=== PATIENT | male | born 1985 | race Caucasian/White ===

== ENCOUNTER 2024-09-06 13:16 | Emergency (ER) | payer OTHER, SELFPAY ==
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
[2024-09-06 13:44] VITALS: BP 130/64; PULSE 73; RESP 18; TEMP 36.6; O2SAT 100
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
--- OUTSIDE RECORDS SUMMARY | 2024-09-06 13:53 | XMS_ITS | Clinical Summary ---
Author Organization [facility] Address [address] [place] [address] Care Team Providers Care Windows Security Analyst Name Role Phone Didier Sandhu MD Primary Care Provider [phone] Source Comments [facility],non-owned Affiliates and Associated Physician Practices is amultiple site organization consisting of ambulatory clinics and hospital sitesin [place], [place], [place] and [place]. This disclosure is being madepursuant to the Care Everywhere program and may not contain all information available regarding this patient. Last updated 18.[facility] Allergies No known active allergies Medications * Be aware that medications may not be up to date on this document. Alwaysverify current medications with the patient. 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 Gender Identity Not on file Sexual Orientation Not on file Last Filed Vital Signs Vital Sign Reading Time Taken Comments Blood Pressure 124/72 06/20/2017 9:24 AM APPRAISER Pulse 88 06/20/2017 9:24 AM APPRAISER Temperature 37.1 C (98.8 F) 06/20/2017 9:24 AM APPRAISER Respiratory Rate 16 06/20/2017 9:24 AM APPRAISER Oxygen Saturation 98% 06/20/2017 9:24 AM APPRAISER Inhaled Oxygen Concentration - - Weight 99.8 kg (220 lb) 06/20/2017 9:24 AM APPRAISER Height 177.8 cm (5' 10 ) 06/20/2017 9:24 AM APPRAISER Body Mass Index 31.57 06/20/2017 9:24 AM APPRAISER Plan of Treatment Health Maintenance Due Date Last Done Comments HIV SCREENING 2000 HEPATITIS C SCREENING 04/19/2003 DTAP/TDAP/TD VACCINES (1 - Tdap) 2004 HEPATITIS B VACCINE (1 of 3 - 19+ 3-dose series) 2004 COVID-19 VACCINE (1 - 2023-2 5 season) 2024 DEPRESSION SCREENING 05/05/2024 INFLUENZA VACCINE (Season Ended) 2025 ZOSTER VACCINE (1 of 2) 2035 HIB VACCINE Aged Out No longer eligi ble based on patient's age to complete this topic HPV VACCINE Aged Out No longer eligi ble based on patient's age to complete this topic MENINGOCOCCAL (Group B) VACC INE SHARED DECISION-MAKING Aged Out No longer eligibl e based on patient's age to complete this topic MENINGOCOCCAL GROUPS A/C/Y/W VACCINE Aged Out No longer eligible b ased on patient's age to complete this topic PNEUMOCOCCAL VACCINE Aged Out No long er eligible based on patient's age to complete this topic Insurance [employer] Care Teams Windows Security Analyst Relationship Specialty Start Date End Date Didier Sandhu MD [address] [place] [address] PCP - General Family Medicine 04/19/16
--- OUTSIDE RECORDS SUMMARY | 2024-09-06 13:53 | XMS_ITS | Referral Summary ---
Author Organization [facility] Address [address] [place] [address] Care Team Providers Care Student Education Specialist Name Role Phone Tena Hogan Primary Care Pr ovider Allergies No known active allergies Medications multivitamin (MULTI-DAY) tabletIndicatio ns:Vitamin Deficiency Prevention Take 1 tablet by mouth Active omega-3 fatty acids-fish oil (FISH OIL) 340-1,000 mg capsule Active diclofenac DR (VOLTAREN) 50 mg EC tablet Take one twice daily as needed for severe headache. No more than two days per week 30 tablet 3 08/30/2019 Active tamsulosin (FLOMAX) 0.4 mg extended release capsule Take 1 capsule (0.4 mg total) by mouth daily for 10 days 10 capsule 07/17/2023 Active Active Problems Problem Noted Date Diagnosed Date Abnormal MRI of head 09/17/2018 Migraine with aura and with status migrainosus, not intractable 09/17/2018 Social History Tobacco Use Types Packs/Day Years Used Date Smoking Tobacco: Never Smokeless Tobacco: Never Personal Safety Answer Date Recorded Have you ever been in or are you currently in a harmful physical or emotional relationship or is someone making you feel afraid or unsafe? 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 Gender Identity Male 07/17/2023 1:02 PM CDT Sexual Orientation Straight 03/18/2019 7: 44 PM LINE ASSEMBLY UTILITY WORKER Last Filed Vital Signs Vital Sign Reading Time Taken Comments Blood Pressure 149/89 07/17/2023 5:25 PM CDT Pulse 87 07/17/2023 5:25 PM CDT Temperature 36.3 C (97.4 F) 07/17/2023 12:48 PM CDT Respiratory Rate 20 07/17/2023 5:25 PM CDT Oxygen Saturation 99% 07/17/2023 5:25 PM CDT Inhaled Oxygen Concentration - - Weight 104.5 kg (230 lb 6.1 oz) 024 12:48 PM CDT Height 175.3 cm (5' 9 ) 07/17/2023 12:4 8 PM CDT Body Mass Index 34.02 07/17/2023 12:48 PM CDT Plan of Treatment Not on file Insurance [employer] [place] [employer] [place] Care Teams Student Education Specialist Relationship Specialty Start Date End Date Tena Hogan PA PCP - General Physician Staff Auditor 06/30/18
--- OUTSIDE RECORDS SUMMARY | 2024-09-06 13:53 | XMS_ITS | Clinical Summary ---
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 Gender Identity Male 07/17/2023 1:02 PM CDT Sexual Orientation Straight 03/18/2019 7: 44 PM MENTAL HEALTH THERAPIST Obstetrics History Last Filed Vital Signs Vital Sign Reading [...] 07/17/2023 12:48 PM CDT Plan of Treatment Health Maintenance Due Date Last Done Comments Depression Screening 1985 Hepatitis C Screening 1985 DTaP/Tdap/Td Vaccine (1 - Tdap) 1996 Varicella Vaccines (1 of 2 - 13+ 2-dose series) 1998 Hepatitis B Screening 2003 Regular Well Visit/Exam 18-64 2003 Influenza Vaccine (Season Ended) 2025 02/03/2020, 02/04/2019 HPV Vaccines Aged Out No longer eligi ble based on patient's age to complete this topic Pneumococcal vaccine <65 Aged Out No longer eligible based on patient's age to complete this topic Insurance [facility] Care Teams Modeler Relationship Specialty Start Date End Date Tena Hogan PA PCP - General Physician Radiochemical Technician 06/30/18
--- OUTSIDE RECORDS SUMMARY | 2024-09-06 13:53 | XMS_ITS | Data Portability ---
[facility] Address [address] [place] [address] Care Team Providers Care Therapeutic Recreation Specialist Name Role Phone MICHELLE FRANKS Primary Care Provider Unavailab le Assessment No assessment recorded. Plan of Treatment Reminders Order Date Submit Date Provider Last Modified By Organization Details Last Modified Time Details Appointments None recorded. Lab testosteron e, total, serum 2024 025 [email or web address], [address], [place], [address], 5 15:13:26 PSA, serum or plasma 2024 025 [facility], [address], [place], [address], 5 15:13:26 CBC w/ auto diff 2024 025 [facility], [address], [place], [address], 5 15:13:27 CMP, serum or plasma 2024 025 [facility], [address], [place], [address], 5 15:13:27 lipid panel, serum 2024 025 JACQUE [facility], [address], [place], [address], 5 10:09:38 testosteron e, total, serum 2023 024 [facility], [facility] [address], [address], [place], [address], 4 10:34:17 TSH, serum or plasma 2023 024 [facility], [facility] [address], [address], [place], [address], 4 10:34:17 CBC w/ auto diff 2023 024 [facility], [address], [address], [place], [address], 4 10:34:17 CMP, serum or plasma 2023 [facility], [facility], [address], [place], [address], 4 10:34:17 lipid panel, serum 2023 024 [facility], [address], [address], [place], [address], 4 10:34:17 HbA1c (hemoglobin A1c), blood 2023 [facility], [facility] [address], [address], [place], [address], 4 10:34:17 insulin, serum 2023 024 [facility], [facility] [address], [address], [place], [address], 4 10:34:18 Referral None recorded. Procedures None recorded. Surgeries None recorded. Imaging electrocard iogram 2024 025 [email or web address] 0 In-Office Order, Internal Use Only DO Not Attach Compendium DO Not Attach Compendium, Do Not Delete/merge, [id number] 14:57:50 Medication Orders None recorded. Patient TargetsNo targets recorded. Patient Instructions Encounter Date Encounter Id Patient Instructions Last Modified By Organization Details Last Modified Time 02/16/2024 [id number] A healthy lifestyle: care instructions Not available 02/16/2024 17:50:08 07/27/2024 [id number] A healthy lifestyle: care instructions Not available 07/27/2024 14:40:32 Reason for Referral None Reported. Results Created Date Observation Date Name Description Value Unit Range Abnormal Flag Note LastModifiedBy Organization Detail LastModifiedTime 07/28/1907/27/2024 elect larrylori ammon am No observ ation record ed. JACQUE In-Office Order Internal Use Only DO Not Attach Compendium DO Not Attach Compendium, Do Not Delete/merge, [id number] 07/28/2024 13:26:17 Result Notes None recorded. Problems Name Problem SNOMED Code Status Onset Date Resolution Date Notes Provider Name and Address Organization Details Recorded Time Hyperlipide valery 63569778 Active 2023 Michelle Ely null, [place] - [facility] 4 11:02:06 Insomnia 564881574 Active 2023 Michelle E[place], [place] [facility] 4 11:02:13 Body mass index 25-29 - overweight 219337752 Active 2024 Elinor Leal [place] null, [place] - [facility] 5 13:57:53 Long-term current use of testosteron e replacement therapy 5825269843991 1 Active 2024 JOAQUÍN Estevez Attn: Lili g,[address] [facility], [place], [address], [place] - [facility] 5 16:24:21 Family history of malignant neoplasm of prostate 185253238 Active 2024 JOAQUÍN Estevez Attn: Lili g,[address] [facility], [place], [address], [place] - [facility] 5 16:24:23 Family history of premature coronary heart disease 437102115 Active 2024 JOAQUÍN Estevez Attn: Lili gallego,[address], [place], [address], [facility] - [facility] 5 16:24:26 Overweight 053898143 Active 2024 JOAQUÍN Estevez Attn: Lili g,[address], [place], [address], [place] - [facility] 5 16:25:05 Long-term drug therapy Active 2024 JOAQUÍN Estevez Attn: Lili g,[address], [place], [address], [facility] - [facility] 5 16:25:17 Problem Notes None recorded. Procedures Surgical History Date Name Laterality Status Provider Name and Address Organization Details Recorded Time Vasectomy completed Elinor Leal MA [facility] 02/16/2024 17:16:01 Imaging Results Imaging Date Name Status LastModified by Organization Details LastModified Time 07/27/2024 electrocardiogram completed JACQUE In-Offi ce Order Internal Use Only DO Not Attach Compendium DO Not Attach Compendium, Do Not Delete/merge, [id number] 07/28/2024 13:26:17 Procedure Notes None recorded. Medical Equipment None Reported. Allergies No known drug allergies Medications Name Sig Start Date Stop Date Status Note LastModified by Organization Details LastModified Time tamsulosi n 0.4 mg capsule TAKE 1 CAPSULE BY MOUTH DAILY FOR 10 DAYS 02/15 completed Not Available Not Available Not Available rosuvasta tin 5 mg tablet TAKE 1 TABLET BY MOUTH EVERY DAY AT BEDTIME 02/15 completed pt. stopped taking this Not Available Not Available Not Available Vitals Date Recorded Body weight Body mass index (BMI) Body height Respiratory rate Oxygen saturation Oxygen saturation in Arterial blood by Pulse oximetry Heart rate Systolic blood pressure Diastolic blood pressure Provider Name and Address Organization Details Last Updated DateTime 4 04178.1 6 g 30.9 kg/m2 175.26 cm 18 /min 99 % 99 % 60 /min 128 mm[Hg] 78 mm[Hg] Elinor Leal MA [facility] 17:18:31 Date Recorded Systolic blood pressure Diastolic blood pressure Provider Name and Address Organization Details Last Updated DateTime 02/16/2024 120 mm[Hg] 80 mm[Hg] JOAQUÍN Estevez Attn: Accounting, [place], [address], [facility] 02/16/2024 17:50:45 Date Recorded Body height Body mass index (BMI) Body weight Oxygen saturation Oxygen saturation in Arterial blood by Pulse oximetry Heart rate Systolic blood pressure Diastolic blood pressure Provider Name and Address Organization Details Last Updated DateTime 175.26 cm 29.2 kg/m2 05868.2 9 g 97 % 97 % 81 /min 126 mm[Hg] 82 mm[Hg] Elinor Leal MA [facility] 13:59:38 Date Recorded Respiratory rate Systolic blood pressure Diastolic blood pressure Provider Name and Address Organization Details Last Updated DateTime 07/27/2024 16 /min 130 mm[Hg] 80 mm[Hg] JOAQUÍN Estevez Attn: Accounting, [address] [place], [address], [facility] 07/27/2024 14:42:12 Social History Question Answer Notes LastModified by Organizat ion Details LastModified Time Tobacco Smoking Status Never Smoker Michelle Ely gerry, [facility] 07/07/2023 11:03:17 Do You Have An Advance Directive? No [email or web address] Information not available 07/07/2023 What Is Your Level Of Alcohol Consumption? Occasional [email or web address] Information not available 07/07/2023 Are You Blind Or Do You Have Difficulty Seeing? Yes Glasses Information not available 07/07/2023 What Is Your Level Of Caffeine Consumption? Moderate [email or web address] Information not available 07/07/2023 In The 14 Days Before Symptom Onset, Have You Had Close Contact With A Laboratory-confir med COVID-19 While That Case Was Ill? No [email or web address] Information not available 07/07/2023 In The 14 Days Before Symptom Onset, Have You Had Close Contact With A Person Who Is Under Investigation For COVID-19 While That Person Was Ill? No [email or web address] Information not available 07/07/2023 Have You Been To An Area Known To Be High Risk For COVID-19? No [email or web address] Information not available 07/07/2023 Are You Currently Employed? Yes [email or web address] Information not available 07/07/2023 Are You Deaf Or Do You Have Serious Difficulty Hearing? No [email or web address] Information not available 07/07/2023 What Type Of Diet Are You Following? REGULAR [email or web address] Information not available 07/07/2023 Are There Any Guns Present In Your Home? No Information not available 02/16/2024 What Was The Date Of Your Most Recent Tobacco Screening? 07/27/2024 Information not available 07/27/2024 What Is Your Relationship Status? [email or web address] Information not available 07/07/2023 Do You Use Your Seat Belt Or Car Seat Routinely? Yes [email or web address] Information not available 07/07/2023 Do You Have Smoke And Carbon Monoxide Detectors In Your Home? Yes [email or web address] Information not available 07/07/2023 Do You Use Any Illicit Or Recreational Drugs? No [email or web address] Information not available 07/07/2023 Do You Use Sunscreen Routinely? Yes [email or web address] Information not available 07/07/2023 Has Tobacco Cessation Counseling Been Provided? No Information not available 02/16/2024 Do You Or Have You Ever Used Any Other Forms Of Tobacco Or Nicotine? No [email or web address] Information not available 07/07/2023 Sex: Male Functional Status Question Answer Note LastModified by Organization D etails LastModified Time Are you able to care for yourself? Yes [email or web address] Information n ot available 07/07/2023 What is your exercise level? None Information not available 07/07/2023 Mental Status None recorded. Family History Relationship Description Onset Age of this Age Resolved Age Notes LastModified by Organization Details LastModified Time Mother Hypertensive disorder [email or web address] Not available 07/06 11:02:46 Mother Hypercholest erolemia [email or web address] Not available 2023 17:20:59 Father Heart disease [email or web address] Not available 2023 17:20:46 Father Hypertensive disorder [email or web address] Not available 2023 17:20:53 Father Migraine [email or web address] Not availabl e 02/16/2024 17:21:13 Medical History Condition Response Coronary Artery Disease N Other N High Blood Pressure N Atrial Fibrillation N Kidney or Bladder Problems N Thyroid Problems N GI Problems N Depression N COPD N Blood Clots N Have you had a mammogram in the last yea r? N Skin Problems N Anemia N Heart Attack (MT) N Anxiety Disorder N Diabetes N Muscle, Joint, or Bone Problems N Seizures/Epilepsy N Have you had a colonoscopy in the last 1 0 years? N Acid Reflux (GERD) N Cancer N Stroke N Asthma N Allergies N Have you had a PSA blood test in the las t year? N High Cholesterol N Hepatitis N Liver Disease N Headaches Y Heart Failure N Osteoporosis N Immunizations Vaccine Type Date Status Note Provider Todd mauro and Address Organization Details Recorded Time Influenza, MDCK, quadrivalent, PF 02/03/2020 completed WILLIAN Navarrete [facility] 02/16/2024 17:16:51 Influenza, split virus, quadrivalent, PF 02/04/2019 completed WILLIAN Navarrete [facility] 02/16/2024 17:16:51 Past Encounters Encounter ID Performer Location Encounter Start Date Encounter Closed Date Diagnosis/Indication Diagnosis SNOMED-CT Code Diagnosis ICD10 Code Diagnosis Note [id number] Mohamud Fraser MD [facility] [place] [address] [place] [address] 02/16/2024 16:58:04 02/16/2024 17:58:48 Body mass index 30+ - obesity 186064119 Z68.30 BMI is 30.9 Obesity 248586136 E66.9 Patient follows a higher protein intermitte nt fasting diet Adult heal th examination 412481123 Z00.00 Annual wellness exam completed Hyperlipidemia 86426879 E78.5 Diet and exercise modificati ons for lipid management . He is due for updated fasted lipid panel Insomnia 573579774 G47.0 0 History of use of insomnia. Patient is currently stable no request for prescripti ve medication Diabetes m ellitus screening 566228643 Z13.1 Annual A1c diabetes screening is due Long-term drug therapy 516821860 Z79.891 Routine CBC and CMP ordered Thyroid di sorder screening 440427310 Z13.29 Routine thyroid labs ordered Endocrine/ metabolic screening 713173756 Z13.228 Patient would like to have testostero ne screening completed [id number] Mohamud Fraser MD [facility] - Yogesh Juárez [address] [place] [address] 07/27/2024 13:48:51 07/27/2024 14:57:50 Body mass index 25-29 - overweight 908544089 Z68.29 BMI is 29.2 Overweight 329722145 E66 .3 Family his tory of malignant neoplasm of prostate 287696960 Z80.42 Mat gf has prostate cancer. Family his tory of premature coronary heart disease 643858518 Z82.49 Pat gf decreased at age 42 shoveling snow. pt's father did have heart attack and now had pacer/defi b; Paternal aunt of something cardiac in her sleep. Hyperlipidemia 75024478 E78.5 Patient is due for an updated fasting lipid panel to see where the levels are at currently. He is no longer following the carnivore diet. He is aware that if elevation persists medication is still recommende d. Long-term current use of testosterone replacement therapy 5304916107 9101 Z79.890 pt doses this on his own, ordered online from a friend...h e would prefer this provider orders labs Tight chest 68790744 R07 .89 EKG is entirely normal in the office. He is not interested in additional diagnostic workup via stress testing. We have discussed that that would be the next recommenda tion if he remains symptomati c. He reports that this directly correlated after increasing his testostero ne dosing and never occurred again, after 2-3 days after the shot. Long-term drug therapy 959301760 Z79.891 Routine CBC and CMP ordered Health Concerns Section Related Observation LastModified by Organization Detai ls LastModified Time None Recorded Concern Status LastModified by Organization Details LastModified Time None Recorded Advance Directives Directive N: Payers Encounter Date Sequence Insurance Name Policy Number Policy Marino Covered Member ID Marino Member ID Guarantor Name 02/16/2024 1 [place] [id number] Adrián Lorenzana [id number] Adrián Lorenzana 07/27/2024 1 [facility] [id number] Adrián Lorenzana [id number] Adrián Salomón Notes Date Note Type Note Provider Name and Address Organization Details Recorded Time 4 text/html HyperlipidemiaReported bypatient.Notes:Patient has a history of hyperlipidemia he is not currently on any medication. He has been trying to manage with diet and exercise modifications in which he has been adherent to.InsomniaReported bypatient.Notes:Insomnia continues to be a chronic complaint but is currently stable at this time JOAQUÍN Estevez Attn: Accounting,[address] [facility], [place], [address], [facility] 03/06/2024 17:27:17 5 text/html HyperlipidemiaReported bypatient.Notes:Patient has a history of hyperlipidemia he is not currently on any medication. He has been trying to manage with diet and exercise modifications in which he has been adherent to.InsomniaReported bypatient.Notes:Insomnia continues to be a chronic complaint but is currently stable at this time Patient reports he just has a less desire and determination and motivation to do things in the last months. He is interested in having testosterone checked again, he has been taking testosterone that a friend is ordering and giving to him. He would like to have labs formally monitored by this office. Upon further discussion on history of present illness patient reports he is having some tightness in his chest that is not necessarily with activity but can be at rest or other times of the day. It is fairly mild and not self-limiting lasting sometimes just sec to a few minutes but he is concerned due to family history of premature heart disease. He does state that it happened right after the dosing of his testosterone was increased. JOAQUÍN Estevez Attn: Accounting,[address] [facility], [place], [address], [facility] 08/08/2024 16:25:52
--- OUTSIDE RECORDS SUMMARY | 2024-09-06 13:53 | XMS_ITS | Data Portability ---
Author Organization [facility], Main Office Address [address] [place] [address] Assessment No assessment recorded. Plan of Treatment Reminders Order Date Submit Date Provider Last Modified By Organization Details Last Modified Time Details Appointments None record ed. Lab None record ed. Referral None record ed. Procedures None record ed. Surgeries None record ed. Imaging None record ed. Medication Orders None record ed. Patient TargetsNo targets recorded. Patient InstructionsNo instructions recorded. Reason for Referral None Reported. Results Created Date Observation Date Name Description Value Unit Range Abnormal Flag Note LastModifiedBy Organization Detail LastModifiedTime 05/19/19 22 05/21/2021 PSA, TOTAL PSA, total 0.37 NG/mL < or = 4.00 normal The total PSA value from this assay syste m is stand ardiz ed again st the WHO stand sohail. The test resul t will be appro ximat moody 20% lower when gurpreet red to the equim olar- stand ardiz ed total PSA (Kessler man Coult er). Gurpreet rison of seria l PSA resul ts shoul d be inter prete d with this fact in mind. This test was perfo rmed using the Sieme ns chemi lumin escen t metho d. Value s obtai kassidy from diffe rent assay metho ds canno t be used inter dukes eably . PSA level s, regar dless of value , shoul d not be inter prete d as absol assin[place] and sioux evide nce of the prese nce or absen ce of disea se. Not Available [employer] [facility] [address] [address], [place], [address], 05/21/2021 13:08:27 05/19/19 22 05/21/2021 TESTO STERO NE, TOTAL , MALES (ADUL T), IA testosterone , total, males (adult), ia 521 NG/dL 250-82 7 normal Not Available [address], [address], 05/21/2021 13:08:26 05/19/19 22 05/21/2021 VITAM IN B12/F OLATE , SERUM PANEL vitamin B12 626 pg/mL 200-11 00 normal Not Available [address], [address], 05/21/2021 13:08:25 05/19/19 22 05/21/2021 VITAM IN B12/F OLATE , SERUM PANEL folate, serum 23.3 NG/mL normal Refer ence Range Low: <3.4 Borde rline : 3.4-5 .4 Marybeth l: >5.4 Not Available [address], [address], 05/21/2021 13:08:25 05/19/19 22 05/21/2021 URINA LYSIS , COMPL ETE color yellow yellow normal Not Available [address], [address], 05/21/2021 13:08:25 05/19/19 22 05/21/2021 URINA LYSIS , COMPL ETE appearance clear clear normal Not Available [address], [address], 05/21/2021 13:08:25 05/19/19 22 05/21/2021 URINA LYSIS , COMPL ETE specific gravity 1.019 1.001- 1.035 normal Not Available [address], [address], 05/21/2021 13:08:25 05/19/19 22 05/21/2021 URINA LYSIS , COMPL ETE pH 7.0 5.0-8. 0 normal Not Available [address], [address], 05/21/2021 13:08:25 05/19/19 22 05/21/2021 URINA LYSIS , COMPL ETE glucose negati ve negati ve normal Not Available [facility] [address], [address], 05/21/2021 13:08:25 05/19/19 22 05/21/2021 URINA LYSIS , COMPL ETE bilirubin negati ve negati ve normal Not Available [facility] [address] [place], [address], 05/21/2021 13:08:25 05/19/19 22 05/21/2021 URINA LYSIS , COMPL ETE ketones trace negati ve abnormal Not Available [facility] [address], [address], 05/21/2021 13:08:25 05/19/19 22 05/21/2021 URINA LYSIS , COMPL ETE occult blood negati ve negati ve normal Not Available [facility] [address] [address] [place], [address], 05/21/2021 13:08:25 05/19/19 22 05/21/2021 URINA LYSIS , COMPL ETE protein negati ve negati ve normal Not Available [facility] [address], [address], 05/21/2021 13:08:25 05/19/19 22 05/21/2021 URINA LYSIS , COMPL ETE nitrite negati ve negati ve normal Not Available [facility] [address], [address], 05/21/2021 13:08:25 05/19/19 22 05/21/2021 URINA LYSIS , COMPL ETE leukocyte esterase trace negati ve abnormal Not Available [facility] [address] [place], [address], 05/21/2021 13:08:25 05/19/19 22 05/21/2021 URINA LYSIS , COMPL ETE WBC none seen /hpf < or = 5 normal Not Available [address], [address], 05/21/2021 13:08:25 05/19/19 22 05/21/2021 URINA LYSIS , COMPL ETE RBC none seen /hpf < or = 2 normal Not Available [address], [address], 05/21/2021 13:08:25 05/19/19 22 05/21/2021 URINA LYSIS , COMPL ETE squamous epithelial cells none seen /hpf < or = 5 normal Not Available [address], [address], 05/21/2021 13:08:25 05/19/19 22 05/21/2021 URINA LYSIS , COMPL ETE bacteria none seen /hpf none seen normal Not Available [address], [address], 05/21/2021 13:08:25 05/19/19 22 05/21/2021 URINA LYSIS , COMPL ETE hyaline cast none seen /lpf none seen normal Not Available [address], [address], 05/21/2021 13:08:25 05/19/19 22 05/21/2021 CBC (INCL UDES DIFF/ PLT) white blood cell count 4.1 thous and/u L 3.8-10 .8 normal Not Available [address], [address], 05/21/2021 13:08:24 05/19/19 22 05/21/2021 CBC (INCL UDES DIFF/ PLT) red blood cell count 5.47 scot on/uL 4.20-5 .80 normal Not Available [address], [address], 05/21/2021 13:08:24 05/19/19 22 05/21/2021 CBC (INCL UDES DIFF/ PLT) hemoglobin 16.4 g/dL 13.2-1 7.1 normal Not Available [address], [address], 05/21/2021 13:08:24 05/19/19 22 05/21/2021 CBC (INCL UDES DIFF/ PLT) hematocrit 50.3 % 38.5-5 0.0 high Not Available [address], [address], 05/21/2021 13:08:24 05/19/19 22 05/21/2021 CBC (INCL UDES DIFF/ PLT) MCV 92.0 fL 80.0-1 00.0 normal Not Available [address], [address], 05/21/2021 13:08:24 05/19/19 22 05/21/2021 CBC (INCL UDES DIFF/ PLT) MCH 30.0 pg 27.0-3 3.0 normal Not Available [address], [address], 05/21/2021 13:08:24 05/19/19 22 05/21/2021 CBC (INCL UDES DIFF/ PLT) MCHC 32.6 g/dL 32.0-3 6.0 normal Not Available [address], [address], 05/21/2021 13:08:24 05/19/19 22 05/21/2021 CBC (INCL UDES DIFF/ PLT) RDW 12.0 % 11.0-1 5.0 normal Not Available [address], [address], 05/21/2021 13:08:24 05/19/19 22 05/21/2021 CBC (INCL UDES DIFF/ PLT) platelet count 239 thous and/u L 140-40 0 normal Not Available [address] [place], [address], 05/21/2021 13:08:24 05/19/19 22 05/21/2021 CBC (INCL UDES DIFF/ PLT) MPV 10.3 fL 7.5-12 .5 normal Not Available [address], [address], 05/21/2021 13:08:24 05/19/19 22 05/21/2021 CBC (INCL UDES DIFF/ PLT) absolute neutrophils 1915 cells /uL 1500-7 800 normal Not Available [address], [address], 05/21/2021 13:08:24 05/19/19 22 05/21/2021 CBC (INCL UDES DIFF/ PLT) absolute lymphocytes 1722 cells /uL 850-39 00 normal Not Available [address] [address] [place], [address], 05/21/2021 13:08:24 05/19/19 22 05/21/2021 CBC (INCL UDES DIFF/ PLT) absolute monocytes 435 cells /uL 200-95 0 normal Not Available [address], [address], 05/21/2021 13:08:24 05/19/19 22 05/21/2021 CBC (INCL UDES DIFF/ PLT) absolute eosinophils 21 cells /uL 15-500 normal Not Available [address], [address], 05/21/2021 13:08:24 05/19/19 22 05/21/2021 CBC (INCL UDES DIFF/ PLT) absolute basophils 8 cells /uL 0-200 normal Not Available [address] [place], [address], 05/21/2021 13:08:24 05/19/19 22 05/21/2021 CBC (INCL UDES DIFF/ PLT) neutrophils 46.7 % normal Not Available [address], [address], 05/21/2021 13:08:24 05/19/19 22 05/21/2021 CBC (INCL UDES DIFF/ PLT) lymphocytes 42.0 % normal Not Available [address], [address], 05/21/2021 13:08:24 05/19/19 22 05/21/2021 CBC (INCL UDES DIFF/ PLT) monocytes 10.6 % normal Not Available [address], [address], 05/21/2021 13:08:24 05/19/19 22 05/21/2021 CBC (INCL UDES DIFF/ PLT) eosinophils 0.5 % normal Not Available [address], [address], 05/21/2021 13:08:24 05/19/19 22 05/21/2021 CBC (INCL UDES DIFF/ PLT) basophils 0.2 % normal Not Available [address], [address], 05/21/2021 13:08:24 05/19/19 22 05/21/2021 HEMOG LOBIN A1C hemoglobin A1C 5.0 %_of_ total _HGB <5.7 normal Not Available [address], [address], 05/21/2021 13:08:24 05/19/19 22 05/21/2021 COMPR EHENS RONALDO METAB OLIC PANEL glucose 88 mg/dL 65-99 normal Fasti ng refer ence inter kendra Not Available [address], [address], 05/21/2021 13:08:23 05/19/19 22 05/21/2021 COMPR EHENS RONALDO METAB OLIC PANEL urea nitrogen (BUN) 14 mg/dL 7-25 normal Not Available [address], [address], 05/21/2021 13:08:23 05/19/19 22 05/21/2021 COMPR EHENS RONALDO METAB OLIC PANEL creatinine 0.88 mg/dL 0.60-1 .35 normal Not Available [address], [address], 05/21/2021 13:08:23 05/19/19 22 05/21/2021 COMPR EHENS RONALDO METAB OLIC PANEL eGFR non-afr. french 111 mL/mi n/1.7 3m2 > or = 60 normal Not Available [address], [address], 05/21/2021 13:08:23 05/19/19 22 05/21/2021 COMPR EHENS RONALDO METAB OLIC PANEL eGFR 128 mL/mi n/1.7 3m2 > or = 60 normal Not Available [address], [address], 05/21/2021 13:08:23 05/19/19 22 05/21/2021 COMPR EHENS RONALDO METAB OLIC PANEL BUN/creatini ne ratio not applic able (calc ) 6-22 Not Available [address], [address], 05/21/2021 13:08:23 05/19/19 22 05/21/2021 COMPR EHENS RONALDO METAB OLIC PANEL sodium 139 mmol/ L 135-14 6 normal Not Available [address], [address], 05/21/2021 13:08:23 05/19/19 22 05/21/2021 COMPR EHENS RONALDO METAB OLIC PANEL potassium 4.7 mmol/ L 3.5-5. 3 normal Not Available [address], [address], 05/21/2021 13:08:23 05/19/19 22 05/21/2021 COMPR EHENS RONALDO METAB OLIC PANEL chloride 104 mmol/ L 98-110 normal Not Available [address], [address], 05/21/2021 13:08:23 05/19/19 22 05/21/2021 COMPR EHENS RONALDO METAB OLIC PANEL carbon dioxide 28 mmol/ L 20-32 normal Not Available [address], [address], 05/21/2021 13:08:23 05/19/19 22 05/21/2021 COMPR EHENS RONALDO METAB OLIC PANEL calcium 9.8 mg/dL 8.6-10 .3 normal Not Available [address], [address], 05/21/2021 13:08:23 05/19/19 22 05/21/2021 COMPR EHENS RONALDO METAB OLIC PANEL protein, total 7.2 g/dL 6.1-8. 1 normal Not Available [address], [address], 05/21/2021 13:08:23 05/19/19 22 05/21/2021 COMPR EHENS RONALDO METAB OLIC PANEL albumin 4.7 g/dL 3.6-5. 1 normal Not Available [address], [address], 05/21/2021 13:08:23 05/19/19 22 05/21/2021 COMPR EHENS RONALDO METAB OLIC PANEL globulin 2.5 g/dL_ (calc ) 1.9-3. 7 normal Not Available [address], [address], 05/21/2021 13:08:23 05/19/19 22 05/21/2021 COMPR EHENS RONALDO METAB OLIC PANEL albumin/glob ulin ratio 1.9 (calc ) 1.0-2. 5 normal Not Available [address], [address], 05/21/2021 13:08:23 05/19/19 22 05/21/2021 COMPR EHENS RONALDO METAB OLIC PANEL bilirubin, total 0.8 mg/dL 0.2-1. 2 normal Not Available [address], [address], 05/21/2021 13:08:23 05/19/19 22 05/21/2021 COMPR EHENS RONALDO METAB OLIC PANEL alkaline phosphatase 49 U/L 36-130 normal Not Available [address], [address], 05/21/2021 13:08:23 05/19/19 22 05/21/2021 COMPR EHENS RONALDO METAB OLIC PANEL AST 26 U/L 10-40 normal Not Available [address], [address], 05/21/2021 13:08:23 05/19/19 22 05/21/2021 COMPR EHENS RONALDO METAB OLIC PANEL ALT 31 U/L 9-46 normal Not Available [address], [address], 05/21/2021 13:08:23 05/19/19 22 05/21/2021 LIPID PANEL WITH RATIO S cholesterol, total 217 mg/dL <200 high Not Available [address], [address], 05/21/2021 13:08:22 05/19/19 22 05/21/2021 LIPID PANEL WITH RATIO S HDL cholesterol 47 mg/dL > or = 40 normal Not Available [address] [address], [place], [address], 05/21/2021 13:08:22 05/19/19 22 05/21/2021 LIPID PANEL WITH RATIO S triglyceride s 76 mg/dL <150 normal Not Available [address] [address] [address] , [place], [address], 05/21/2021 13:08:22 05/19/19 22 05/21/2021 LIPID PANEL WITH RATIO S LDL-choleste rol 152 mg/dL _(dora c) high Refer ence range : <100 Jad able range <100 mg/dL for prima ry preve ntion ; <70 mg/dL for patie nts with CHD or diabe tic patie nts with > or = 2 CHD risk facto rs. LDL-C is now calcu lated using the iSdra n-Hop kins calcu linda n, which is a valid ated novel charanjit baker r accur acy than the Fried josefina equat ion in the estim ation of LDL-C . Sidra garrison SS et al. LEVI. 2013; 310(1 9): 2061- 2068 (http ://ed ucati on.For [employer] Evan for[MD]. [employer]/f aq/FA Q164) Not Available [address] [address] [address], [place], [address], 05/21/2021 13:08:22 05/19/19 22 05/21/2021 LIPID PANEL WITH RATIO S chol/HDLC ratio 4.6 (calc ) <5.0 normal Not Available [address] [address] [place], [address], 05/21/2021 13:08:22 05/19/1905/21/2021 LIPID PANEL WITH RATIO S LDL/HDL ratio 3.2 (calc ) Below Oelrichs ge Risk: <2.28 Oelrichs ge Risk: 2.29- 4.90 Moder ate Risk: 4.91- 7.12 High Risk: >7.13 Not Available [facility] [address] [place], [address], 05/21/2021 13:08:22 05/19/19 22 05/21/2021 LIPID PANEL WITH RATIO S non HDL cholesterol 170 mg/dL _(dora c) <130 high For patie nts with diabe fortino plus 1 major ASCVD risk facto r, treat ing to a non-H DL-C goal of <100 mg/dL (LDL- C of <70 mg/dL ) is consi sued a chinoa emil c optio n. Not Available [address] [place], [address], 05/21/2021 13:08:22 05/19/19 22 05/21/2021 TSH+F REE T4 TSH 0.91 mIU/L 0.40-4 .50 normal Not Available [employer] [address], [address], 05/21/2021 13:08:21 05/19/19 22 05/21/2021 TSH+F REE T4 T4, free 1.2 NG/dL 0.8-1. 8 normal Not Available [employer] [address], [address], 05/21/2021 13:08:21 12/09/19 22 12/09/2021 LIPID PANEL WITH RATIO S cholesterol, total 226 mg/dL <200 high Not Available [employer] [address], [address], 12/09/2021 07:50:58 12/09/19 22 12/09/2021 LIPID PANEL WITH RATIO S HDL cholesterol 44 mg/dL > or = 40 normal Not Available [employer] [address], [address], 12/09/2021 07:50:58 12/09/19 22 12/09/2021 LIPID PANEL WITH RATIO S triglyceride s 167 mg/dL <150 high Not Available [employer] [address], [address], 12/09/2021 07:50:58 12/09/19 22 12/09/2021 LIPID PANEL WITH RATIO S LDL-choleste rol 152 mg/dL _(dora c) high Refer ence range : <100 Jad able range <100 mg/dL for prima ry preve ntion ; <70 mg/dL for patie nts with CHD or diabe tic patie nts with > or = 2 CHD risk facto rs. LDL-C is now calcu lated using the Sidra n-Hop kins calcu latio n, which is a valid ated novel metho d provi ding samuel r accur acy than the Fried josefina equat ion in the estim ation of LDL-C . Sidra garrison SS et al. LEVI. 2013; 310(1 9): 2061- 2068 (http ://ed ucati on.[employer]. com/f aq/FA Q164) Not Available [employer] [address], [address], 12/09/2021 07:50:58 12/09/19 22 12/09/2021 LIPID PANEL WITH RATIO S chol/HDLC ratio 5.1 (calc ) <5.0 high Not Available [employer] [facility] [id number] [place] [address], [address], 12/09/2021 07:50:58 12/09/19 22 12/09/2021 LIPID PANEL WITH RATIO S LDL/HDL ratio 3.5 (calc ) Below [place]elrich[place] ge Risk: <2.28 [place]rich[place] ge Risk: 2.29- 4.90 Moder ate Risk: 4.91- 7.12 High Risk: >7.13 Not Available [employer] [facility] [id number] [place] [address], [address], 12/09/2021 07:50:58 12/09/19 22 12/09/2021 LIPID PANEL WITH RATIO S non HDL cholesterol 182 mg/dL _(dora c) <130 high For patie nts with diabe fortino plus 1 major ASCVD risk facto r, treat ing to a non-H DL-C goal of <100 mg/dL (LDL- C of <70 mg/dL ) is sasha ramey n. Not Available [address], [address], 12/09/2021 07:50:58 11/19/1911/19/2022 TSH+F REE T4 TSH 1.18 mIU/L 0.40-4 .50 normal Not Available [address] [place], [address], 11/19/2022 04:22:04 11/19/1911/19/2022 TSH+F REE T4 T4, free 1.1 NG/dL 0.8-1. 8 normal Not Available [address], [address], 11/19/2022 04:22:04 11/19/19 23 11/19/2022 LIPID PANEL WITH RATIO S cholesterol, total 169 mg/dL <200 normal Not Available [address], [address], 11/19/2022 04:22:05 11/19/19 23 11/19/2022 LIPID PANEL WITH RATIO S HDL cholesterol 51 mg/dL > or = 40 normal Not Available [address], [address], 11/19/2022 04:22:05 11/19/19 23 11/19/2022 LIPID PANEL WITH RATIO S triglyceride s 137 mg/dL <150 normal Not Available [address], [address], 11/19/2022 04:22:05 11/19/19 23 11/19/2022 LIPID PANEL WITH RATIO S LDL-choleste rol 94 mg/dL _(dora c) normal Refer ence range : <100 Jad able range <100 mg/dL for prima ry preve ntion ; <70 mg/dL for patie nts with CHD or diabe tic patie nts with > or = 2 CHD risk facto rs. LDL-C is now calcu lated using the Sidra n-Hop kins ynes garrison, which is a valid ated novel charanjit carl accur acy than the Fried josefina equat ion in the estim ation of LDL-C . Sidra garrison SS et al. LEVI. 2013; 310(1 9): 2061- 2068 (http ://ed ucati on.Qu estDi [employer]. com/f aq/FA Q164) Not Available [employer] [facility] [address] [place], [address], 11/19/2022 04:22:05 11/19/1911/19/2022 LIPID PANEL WITH RATIO S chol/HDLC ratio 3.3 (calc ) <5.0 normal Not Available [employer] [address] [address] [place], [address], 11/19/2022 04:22:05 11/19/19 23 11/19/2022 LIPID PANEL WITH RATIO S LDL/HDL ratio 1.8 (calc ) Below [place]rich[place] ge Risk: <2.28 [place]rich[place] ge Risk: 2.29- 4.90 Moder ate Risk: 4.91- 7.12 High Risk: >7.13 Not Available [employer] [facility] [address] [place], [address], 11/19/2022 04:22:05 11/19/19 23 11/19/2022 LIPID PANEL WITH RATIO S non HDL cholesterol 118 mg/dL _(dora c) <130 normal For patie nts with diabe fortino plus 1 major ASCVD risk facto r, treat ing to a non-H DL-C goal of <100 mg/dL (LDL- C of <70 mg/dL ) is sasha finn optio n. Not Available [employer] [facility] [address] [place], [address], 11/19/2022 04:22:05 11/19/19 23 11/19/2022 COMPR EHENS RONALDO METAB OLIC PANEL glucose 92 mg/dL 65-99 normal Fasti ng refer ence inter kendra Not Available [address], [address], 11/19/2022 04:22:06 11/19/19 23 11/19/2022 COMPR EHENS RONALDO METAB OLIC PANEL urea nitrogen (BUN) 11 mg/dL 7-25 normal Not Available [address], [address], 11/19/2022 04:22:06 11/19/19 23 11/19/2022 COMPR EHENS RONALDO METAB OLIC PANEL creatinine 0.98 mg/dL 0.60-1 .26 normal Not Available [address], [address], 11/19/2022 04:22:06 11/19/19 23 11/19/2022 COMPR EHENS RONALDO METAB OLIC PANEL eGFR 102 mL/mi n/1.7 3m2 > or = 60 normal The eGFR is based on the CKD-E PI 2020 pro brooks. To calcu late the new eGFR from a previ ous Creat inine or Cysta tin C resul t, go to https ://wanda pete.norris ramesh/josé luis lozoya s/ kdoqi /gfr% 5Fcal culat or Not Available [address], [address], 11/19/2022 04:22:06 11/19/19 23 11/19/2022 COMPR EHENS RONALDO METAB OLIC PANEL BUN/creatini ne ratio NOT APPLIC ABLE (calc ) 6-22 Not Available [address], [address], 11/19/2022 04:22:06 11/19/19 23 11/19/2022 COMPR EHENS RONALDO METAB OLIC PANEL sodium 139 mmol/ L 135-14 6 normal Not Available [address], [address], 11/19/2022 04:22:06 11/19/19 23 11/19/2022 COMPR EHENS RONLADO METAB OLIC PANEL potassium 4.5 mmol/ L 3.5-5. 3 normal Not Available [address], [address], 11/19/2022 04:22:06 11/19/19 23 11/19/2022 COMPR EHENS RONALDO METAB OLIC PANEL chloride 105 mmol/ L 98-110 normal Not Available [address], [address], 11/19/2022 04:22:06 11/19/19 23 11/19/2022 COMPR EHENS RONALDO METAB OLIC PANEL carbon dioxide 28 mmol/ L 20-32 normal Not Available [address], [address], 11/19/2022 04:22:06 11/19/19 23 11/19/2022 COMPR EHENS RONALDO METAB OLIC PANEL calcium 9.4 mg/dL 8.6-10 .3 normal Not Available [address], [address], 11/19/2022 04:22:06 11/19/19 23 11/19/2022 COMPR EHENS RONALDO METAB OLIC PANEL protein, total 7.0 g/dL 6.1-8. 1 normal Not Available [address], [address], 11/19/2022 04:22:06 11/19/19 23 11/19/2022 COMPR EHENS RONALDO METAB OLIC PANEL albumin 4.5 g/dL 3.6-5. 1 normal Not Available [address], [address], 11/19/2022 04:22:06 11/19/19 23 11/19/2022 COMPR EHENS RONALDO METAB OLIC PANEL globulin 2.5 g/dL_ (calc ) 1.9-3. 7 normal Not Available [address], [address], 11/19/2022 04:22:06 11/19/19 23 11/19/2022 COMPR EHENS RONALDO METAB OLIC PANEL albumin/glob ulin ratio 1.8 (calc ) 1.0-2. 5 normal Not Available [address], [address], 11/19/2022 04:22:06 11/19/19 23 11/19/2022 COMPR EHENS RONALDO METAB OLIC PANEL bilirubin, total 0.7 mg/dL 0.2-1. 2 normal Not Available [address], [address], 11/19/2022 04:22:06 11/19/19 23 11/19/2022 COMPR EHENS RONALDO METAB OLIC PANEL alkaline phosphatase 45 U/L 36-130 normal Not Available [address], [address], 11/19/2022 04:22:06 11/19/19 23 11/19/2022 COMPR EHENS RONALDO METAB OLIC PANEL AST 22 U/L 10-40 normal Not Available [address], [address], 11/19/2022 04:22:06 11/19/19 23 11/19/2022 COMPR EHENS RONALDO METAB OLIC PANEL ALT 24 U/L 9-46 normal Not Available [address], [address], 11/19/2022 04:22:06 11/19/19 23 11/19/2022 HEMOG LOBIN A1C hemoglobin A1C 5.0 %_of_ total _HGB <5.7 normal For the purpo se of james cruz for the prese nce of diabe fortino: <5.7% Consi stent with the absen ce of diabe fortino 5.7-6 .4% Consi stent with incre ased risk for diabe fortino (pred iabet es) > or =6.5% Consi stent with diabe fortino This assay resul t is consi stent with a decre ased risk of diabe fotrino. Curre ntly, no conse nsus exist s selina temple use of hemog lobin A1c for diagn osis of diabe fortino in child elías. Accor ding to Ameri can Diabe fortino Ass[employer] iatio n (ADA) guide lines , hemog lobin A1c <7.0% repre sents optim al contr ol in non-p regna nt diabe tic patie nts. Diffe rent metri cs may apply to speci fic patie nt popul ation s. Stand ards of Medic al Care in Diabe fortino(A DA). Not Available [address] [address] [place], [address], 11/19/2022 04:22:06 11/19/19 23 11/19/2022 CBC (INCL UDES DIFF/ PLT) white blood cell count 4.8 thous and/u L 3.8-10 .8 normal Not Available [address] [address] [place], [address], 11/19/2022 04:22:07 11/19/19 23 11/19/2022 CBC (INCL UDES DIFF/ PLT) red blood cell count 5.22 scot on/uL 4.20-5 .80 normal Not Available [facility] [address] [address] [place], [address], 11/19/2022 04:22:07 11/19/19 23 11/19/2022 CBC (INCL UDES DIFF/ PLT) hemoglobin 15.9 g/dL 13.2-1 7.1 normal Not Available [facility] [address] [address] [place], [address], 11/19/2022 04:22:07 07/17/20 23 11/19/2022 CBC (INCL UDES DIFF/ PLT) hematocrit 48.0 % 38.5-5 0.0 normal Not Available [address], [address], 11/19/2022 04:22:07 11/19/19 23 11/19/2022 CBC (INCL UDES DIFF/ PLT) MCV 92.0 fL 80.0-1 00.0 normal Not Available [address], [address], 11/19/2022 04:22:07 11/19/19 23 11/19/2022 CBC (INCL UDES DIFF/ PLT) MCH 30.5 pg 27.0-3 3.0 normal Not Available [address], [address], 11/19/2022 04:22:07 11/19/19 23 11/19/2022 CBC (INCL UDES DIFF/ PLT) MCHC 33.1 g/dL 32.0-3 6.0 normal Not Available [address], [address], 11/19/2022 04:22:07 11/19/19 23 11/19/2022 CBC (INCL UDES DIFF/ PLT) RDW 12.4 % 11.0-1 5.0 normal Not Available [address], [address], 11/19/2022 04:22:07 11/19/19 23 11/19/2022 CBC (INCL UDES DIFF/ PLT) platelet count 201 thous and/u L 140-40 0 normal Not Available [address], [address], 11/19/2022 04:22:07 11/19/19 23 11/19/2022 CBC (INCL UDES DIFF/ PLT) MPV 10.1 fL 7.5-12 .5 normal Not Available [address] [place], [address], 11/19/2022 04:22:07 11/19/19 23 11/19/2022 CBC (INCL UDES DIFF/ PLT) absolute neutrophils 2635 cells /uL 1500-7 800 normal Not Available [address], [address], 11/19/2022 04:22:07 11/19/19 23 11/19/2022 CBC (INCL UDES DIFF/ PLT) absolute lymphocytes 1709 cells /uL 850-39 00 normal Not Available [address], [address], 11/19/2022 04:22:07 11/19/19 23 11/19/2022 CBC (INCL UDES DIFF/ PLT) absolute monocytes 408 cells /uL 200-95 0 normal Not Available [address], [address], 11/19/2022 04:22:07 11/19/19 23 11/19/2022 CBC (INCL UDES DIFF/ PLT) absolute eosinophils 29 cells /uL 15-500 normal Not Available [address], [address], 11/19/2022 04:22:07 11/19/19 23 11/19/2022 CBC (INCL UDES DIFF/ PLT) absolute basophils 19 cells /uL 0-200 normal Not Available [address], [address], 11/19/2022 04:22:07 11/19/19 23 11/19/2022 CBC (INCL UDES DIFF/ PLT) neutrophils 54.9 % normal Not Available [address], [address], 11/19/2022 04:22:07 11/19/19 23 11/19/2022 CBC (INCL UDES DIFF/ PLT) lymphocytes 35.6 % normal Not Available [facility] [address] [place], [address], 11/19/2022 04:22:07 11/19/19 23 11/19/2022 CBC (INCL UDES DIFF/ PLT) monocytes 8.5 % normal Not Available [facility] [address] [address] [place], [address], 11/19/2022 04:22:07 11/19/19 23 11/19/2022 CBC (INCL UDES DIFF/ PLT) eosinophils 0.6 % normal Not Available [facility] [address], [address], 11/19/2022 04:22:07 11/19/19 23 11/19/2022 CBC (INCL UDES DIFF/ PLT) basophils 0.4 % normal Not Available [employer] [address], [address], 11/19/2022 04:22:07 11/19/19 23 11/19/2022 PSA, TOTAL PSA, total 0.36 NG/mL < or = 4.00 normal The total PSA value from this assay syste m is stand ardiz ed again st the WHO stand sohail. The test resul t will be appro ximat moody 20% lower when gurpreet red to the equim olar- stand ardiz ed total PSA ([place]essler man Coult er). Gurpreet rison of seria l PSA resul ts shoul d be inter prete d with this fact in mind. This test was perfo rmed using the Sieme ns chemi lumin escen t metho d. Value s obtai kassidy from diffe rent assay metho ds canno t be used inter dukes eably . PSA level s, regar dless of value , shoul d not be inter prete d as absol [place] evide nce of the prese nce or absen ce of disea se. Not Available [employer] [address] [place], [address], 11/19/2022 04:22:08 08/31/19 22 08/27/2021 home sleep study No observ ation record ed. [id number] Not Available 07/03/2022 20:41:36 09/01/19 22 08/27/2021 polys omnog mariaelena No observ ation record ed. [id number] [facility] [address] [place], [address], 07/03/2022 20:41:36 Result Notes None recorded. Problems Name Problem SNOMED Code Status Onset Date Resolution Date Notes Provider Name and Address Organization Details Recorded Time Acute sinusitis 72468883 Active 2021 Not Available [facility] 3 20:40:25 Insomnia 276156801 Active 2021 Not Available [facility] 3 20:40:25 Headache 34896082 Active 2021 Not Available [facility] 3 20:40:26 Sleep disorder 67797245 Active 2021 Not Available [facility] 3 20:40:26 Dyssomnia 25038599 Active 2021 Not Available [facility] 3 20:40:26 Hyperlipidemi a 63667593 Active 2021 Not Available [facility] 3 20:40:26 Problem Notes None recorded. Procedures Surgical History None recorded. Imaging Results Imaging Date Name Status LastModified by Organization Details LastModified Time 08/27/2021 home sleep study completed [id number] Information not available 07/03/2022 20:41:36 08/27/2021 polysomnogram completed [id number] [facility] [address] [place], [address], 07/03/2022 20:41:36 Procedure Notes None recorded. Medical Equipment None Reported. Allergies No known drug allergies Medications Name Sig Start Date Stop Date Status Note LastModified by Organization Details LastModified Time azithromy sobeida 250 mg tablet TK 2 TS PO ON DAY 1, THEN TK 1 T PO D FOR 4 DAYS 12/10 completed Not Available Not Available Not Available prednison e 20 mg tablet 3 tabs po daily x 2 days, then 2 tabs po daily x 2 days then 1 tab po daily x 2 days, then 1/2 tab po daily x 2 days. active Not Available Not Available No t Available topiramat e 25 mg tablet 2 tabs po bid active Not Available Not Available No t Available rizatript an 10 mg disintegr ating tablet 05/12 completed Not Available Not Available Not Available neomycin- polymyxin -dexameth 3.5 mg/mL-10, 000 unit/mL-0 .1% eye drops 12/10 completed Not Available Not Available Not Available diclofena c sodium 50 mg tablet,de layed release TK 1 T PO BID PRF SEVERE GRIFFIN NO MORE THAN 2 DAYS PER WEEK 05/14 completed Not Available Not Available Not Available amoxicill in 875 mg-potass ium clavulana te 125 mg tablet Take 1 tablet every 12 hours by oral route. 06/18 completed Not Available Not Available Not Available verapamil ER 120 mg 24 hr capsule,e xtended release TK ONE C PO QD 05/15 completed Not Available Not Available Not Available rosuvasta tin 5 mg tablet TAKE 1 TABLET BY MOUTH EVERY DAY AT BEDTIME active Not Available Not Available No t Available Lunesta 2 mg tablet Take 1 tablet every day by oral route at bedtime. 06/24 completed Not Available Not Available Not Available Fluzone Quad (PF) 60 mcg (15 mcg x 4)/0.5 mL IM syringe PHARMACI ST ADMINIST ERED IMMUNIZA TION ADMINIST ERED AT TIME OF DISPENSI NG 06/21 completed Not Available Not Available Not Available Dayvigo 5 mg tablet Take 1 tablet every day by oral route at bedtime. 06/19 completed samples given Not Available Not Available Not Available Dayvigo 10 mg tablet TAKE 1 TABLET BY MOUTH EVERY DAY AT BEDTIME 12/10 completed Not Available Not Available Not Available Vitals Date Recorded Body mass index (BMI) Body height Oxygen saturation Oxygen saturation in Arterial blood by Pulse oximetry Heart rate Respiratory rate Body temperature Body weight Systolic blood pressure Diastolic blood pressure Provider Name and Address Organization Details Last Updated DateTime 2 32.7 kg/m2 175.26 cm 98 % 98 % 84 /min 16 /min 98.3 [degF] 831105. 35 g 128 mm[Hg] 84 mm[Hg] Not Available [facility] 3 20:40:17 Date Recorded Body mass index (BMI) Body height Oxygen saturation Oxygen saturation in Arterial blood by Pulse oximetry Heart rate Body temperature Body weight Systolic blood pressure Diastolic blood pressure Provider Name and Address Organization Details Last Updated DateTime 2 32.3 kg/m2 175.26 cm 97 % 97 % 58 /min 97.8 [degF] 00471.7 3 g 110 mm[Hg] 70 mm[Hg] Not Available [facility] 3 20:40:17 Date Recorded Body mass index (BMI) Body height Oxygen saturation Oxygen saturation in Arterial blood by Pulse oximetry Heart rate Respiratory rate Body temperature Body weight Systolic blood pressure Diastolic blood pressure Provider Name and Address Organization Details Last Updated DateTime 2 33.5 kg/m2 175.26 cm 98 % 98 % 68 /min 16 /min 97.2 [degF] 758367. 47 g 142 mm[Hg] 82 mm[Hg] Not Available [facility] 3 20:40:18 Date Recorded Body weight Body mass index (BMI) Body height Body temperature Heart rate Oxygen saturation Oxygen saturation in Arterial blood by Pulse oximetry Systolic blood pressure Diastolic blood pressure Provider Name and Address Organization Details Last Updated DateTime 3 308008. 28 g 33.2 kg/m2 175.26 cm 98.1 [degF] 65 /min 98 % 98 % 138 mm[Hg] 72 mm[Hg] Ameena Church RN [facility] 3 17:03:01 Date Recorded Systolic blood pressure Diastolic blood pressure Provider Name and Address Organization Details Last Updated DateTime 01/13/2023 130 mm[Hg] 70 mm[Hg] JOAQUÍN Estevez [address] [place] [address] [address] [address], [place], [address], [facility] 01/13/2023 17:22:36 Social History Question Answer Notes LastModified by Organizat ion Details LastModified Time Tobacco Smoking Status Never Smoker Not Available [facility] 07/03/2022 20:39:31 Do You Have An Advance Directive? No [id number] Information not available 07/03/2022 What Is Your Level Of Alcohol Consumption? Occasional [id number] Information not available 07/03/2022 What Is Your Level Of Caffeine Consumption? Moderate [id number].[id number] Information not available 07/03/2022 In The 14 Days Before Symptom Onset, Have You Had Close Contact With A Laboratory-confirm ed COVID-19 While That Case Was Ill? No MIGRATION.[id number] 0830 Information not available 07/03/2022 In The 14 Days Before Symptom Onset, Have You Had Close Contact With A Person Who Is Under Investigation For COVID-19 While That Person Was Ill? No [id number] Information not available 07/03/2022 What Type Of Diet Are You Following? REGULAR [id number].[id number] 9361 Information not available 07/03/2022 Have There Been Any Changes To Your Family Or Social Situation? No MIGRATION.[id number] 6009 Information not available 07/03/2022 Are There Any Guns Present In Your Home? Yes MIGRATION.100352 6086 Information not available 07/03/2022 Do You Use Insect Repellent Routinely? No MIGRATION.442316 5149 Information not available 07/03/2022 Do You Have A Medical Power Of Curtains And Draperies Salesperson? No MIGRATION.941348 1479 Information not available 07/03/2022 Do You Have Any Pets? Yes MIGRATION.549620 5610 Information not available 07/03/2022 What Is Your Relationship Status? MIGRATION.261175 7714 Information not available 07/03/2022 Do You Use Your Seat Belt Or Car Seat Routinely? Yes MIGRATION.437727 2780 Information not available 07/03/2022 Do You Have Smoke And Carbon Monoxide Detectors In Your Home? Yes MIGRATION.027572 6977 Information not available 07/03/2022 Do You Use Any Illicit Or Recreational Drugs? No MIGRATION.048935 3701 Information not available 07/03/2022 Do You Use Sunscreen Routinely? Yes MIGRATION.919471 3658 Information not available 07/03/2022 Have You Recently Traveled Abroad? No MIGRATION.008263 2495 Information not available 07/03/2022 Do You Have Any Dietary Restrictions? No MIGRATION.321612 7015 Information not available 07/03/2022 Do You Or Have You Ever Used Any Other Forms Of Tobacco Or Nicotine? No MIGRATION.248550 8975 Information not available 07/03/2022 Sex: Unknown Functional Status Question Answer Note LastModified by Organizat ion Details LastModified Time What is your exercise level? Occasional [id number] 26 Information not available 07/03/2022 Mental Status None recorded. Family History Relationship Description Onset Age of this Age Resolved Age Notes LastModified by Organization Details LastModified Time Mother Hypertensive disorder [id number] Not available 07/03/2022 20:39:34 Medical History Condition Response HEADACHES/MIGRAINES Y Immunizations Vaccine Type Date Status Note Provider Nam e and Address Organization Details Recorded Time influenza, unspecified formulation 0 completed Not Available [facility] 07/03/2022 20:41:33 Past Encounters Encounter ID Performer Location Encounter Start Date Encounter Closed Date Diagnosis/Indication Diagnosis SNOMED-CT Code Diagnosis ICD10 Code Diagnosis Note [id number] JOAQUÍN Estevez [facility] [address] [place] [address] 05/15/2021 00:00:00 06/04/2021 14:16:55 [id number] JOAQUÍN Estevez [facility] [address] [place] [address] 06/12/2021 00:00:00 07/02/2021 18:46:38 [id number] Mohamud Fraser MD [facility] [address] [place] [address] 12/10/2021 00:00:00 01/02/2022 09:46:19 [id number] JOAQUÍN Estevez [facility] [address] [place] [address] 01/13/2023 16:55:45 01/13/2023 17:29:30 Adult health examination 193259488 Z00.00 well exam completed. Hyperlipidemia 83129857 E78.5 stable on labs. continue crestor 5mg daily. Long-term drug therapy 303189932 Z79.899 Health Concerns Section Related Observation LastModified by Organization Detai ls LastModified Time None Recorded Concern Status LastModified by Organization Details LastModified Time None Recorded Advance Directives Directive N: Payers Encounter Date Sequence Insurance Name Policy Number Policy Marino Covered Member ID Marino Member ID Guarantor Name 01/13/2023 1 [facility]: (PPO) [id number] Adrián Lorenzana [id number] Adrián Lorenzana Notes Date Note Type Note Provider Name and Address Organization Details Recorded Time 2 text/htm l HeadacheReported bypatient.Quality:not the worst headache ever; similar to previous headaches Severity:mild Duration:intermittent episodes lasting:; <7 days/month Onset/Timing:better Context:not related to trauma Alleviating factors:pt states he has changed his diet and that has helped much with his migraines. He now only experiences about 1 monthly Associated Symptoms:no nausea; no vomiting; no fever; no constipation; no diarrhea; no nasal congestion/discharge; no sensitivity to light; tearing/watery eyes; no confusion; no slurred speech; no preceeding aura; no double vision; normal feeling/sensation; no motor paralysis; no dizziness; no sleep disturbances; no nosebleeds; no hoarseness; no sore throat; no hearing loss; no eyelid edema; no weight lossSleep ProblemsReported bypatient.General Sleep:insomnia: difficulty falling asleep;insomnia: awakening in the middle of the night;unrefreshing sleep Onset/Timing:gradual onset; chronic Severity:difficulty getting going in the morning Quality:no loud snoring; no gasping for air; no hyponasal speech; no frequent breathing through the mouth Location of sleep apnea:no enlarged tonsils; no nasal passage blockage; no throat pain; no feeling of tightness in throat; no dryness of mouth; no chest congestion Pain disturbing sleep:headache Narcolepsy Symptoms:no cataplexy Prescribed sleep medications:not taking medication to help sleep Not Available [facility] 06/04/2021 14:16:55 2 text/htm l HeadacheReported bypatient.Quality:not the worst headache ever; similar to previous headaches Severity:mild Duration:intermittent episodes lasting:; <7 days/month Onset/Timing:better Context:not related to trauma Alleviating factors:pt states he has changed his diet and that has helped much with his migraines. He now only experiences about 1 monthly Associated Symptoms:no nausea; no vomiting; no fever; no constipation; no diarrhea; no nasal congestion/discharge; no sensitivity to light; tearing/watery eyes; no confusion; no slurred speech; no preceeding aura; no double vision; normal feeling/sensation; no motor paralysis; no dizziness; no sleep disturbances; no nosebleeds; no hoarseness; no sore throat; no hearing loss; no eyelid edema; no weight lossSleep ProblemsReported bypatient.General Sleep:insomnia: difficulty falling asleep;insomnia: awakening in the middle of the night;unrefreshing sleep Onset/Timing:gradual onset; chronic Severity:difficulty getting going in the morning Quality:no loud snoring; no gasping for air; no hyponasal speech; no frequent breathing through the mouth Location of sleep apnea:no enlarged tonsils; no nasal passage blockage; no throat pain; no feeling of tightness in throat; no dryness of mouth; no chest congestion Pain disturbing sleep:headache Narcolepsy Symptoms:no cataplexy Prescribed sleep medications:not taking medication to help sleep Not Available [facility] 07/02/2021 18:46:38 2 text/htm l HyperlipidemiaReported bypatient.Duration:chronic Control:usually well controlled Compliance:compliant; compliant with diet; exercises Complications:no coronary artery disease; no peripheral artery disease; no cardiovascular diseaseInsomniaReported bypatient.Severity:same Associated Symptoms:no anxiety; no snoring; no depression; no known sleep apnea; no pain; no dyspnea; no urinary frequency; legs do not feel restless Not Available [facility] 01/02/2022 09:46:19 3 text/htm l HyperlipidemiaReported bypatient.Control:usually well controlled; improving; at goal Compliance:compliant; compliant with diet; exercises Complications:no coronary artery disease; no peripheral artery disease; no cardiovascular disease wellness JOAQUÍN Estevez [address] [facility], [facility] [address], [place], [address], [facility] 01/31/2023 12:19:36
--- OUTSIDE RECORDS SUMMARY | 2024-09-06 13:53 | XMS_ITS | Continuity of Care Document ---
Author Organization [facility] Address [address] [place] [address] Phone Care Team Providers Care Drafter Apprentice Name Role Phone Shane Gonzalez DO Unavailable Unavailable Advance Directives Directive Yes / No Effective Date File Name No Information Encounters Encounter Description Practice Location Reason(s) For Visit Diagnoses Date Provider Providers Copied on Encounter [facility], [address], [place], [place], [id number], [place] tel:[phone] [facility] No Information Lisa Davis. [address] [facility], [place], [address], [place]. tel:[phone] Family History Family Member Type Diagnosis Age At Onset No Information Payers Payer name Insurance type Covered alliance party ID Authoriza tion(s) No Information Social History Type Description Quantity Date Captured Comments Sex Male Smoking Status No Information Chief Complaint And Reason For Visit No Information Reason For Referral Reason For Referral No Information History Of Present Illness Encounter Date Complaint History Of Prese nt Illness No Information Functional Status Date Functional Assessmen t No Information Instructions Date Instruction Additional Infor mation No Information Assessments Type Assessment Date No Information Patient Care Teams Name Effective Dates (start - stop) Status Members No Information
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
[2024-09-06 15:55] VITALS: BP 128/60; PULSE 77; RESP 18; TEMP 36.6; O2SAT 100
--- OUTSIDE RECORDS SUMMARY | 2024-09-06 16:26 | XMS_ITS | Clinical Summary ---
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
--- OUTSIDE RECORDS SUMMARY | 2024-09-06 16:26 | XMS_ITS | Continuity of Care Document ---
Author Organization [facility] Address [address] [place] [address] Phone Care Team Providers Care Wire Frame Maker Name Role Phone Shane Gonzalez DO Unavailable Unavailable Advance Directives Directive Yes / No Effective Date File Name No Information Encounters Encounter Description Practice Location Reason(s) For Visit Diagnoses Date Provider Providers Copied on Encounter [facility], [address], [place], [place], [id number], [place] tel:[phone] [facility] No Information Lisa Davis. [address] [facility], [place], [address], [place]. tel:[phone] Family History Family Member Type Diagnosis Age At Onset No Information Payers Payer name Insurance type Covered constitution party ID Authoriza tion(s) No Information Social [...]
--- OUTSIDE RECORDS SUMMARY | 2024-09-06 16:26 | XMS_ITS | Referral Summary ---
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
--- OUTSIDE RECORDS SUMMARY | 2024-09-06 16:26 | XMS_ITS | Clinical Summary ---
Author Organization [facility] [employer] Address [address] [place] [address] Care Team Providers Care Mechanical Shop Laborer Name Role Phone Didier Sandhu MD Primary Care Provider [phone] Source Comments [facility] [employer],non-owned Affiliates and Associated Physician Practices is amultiple site organization consisting of ambulatory clinics and hospital sitesin [place], [place], [place] and [place]. This disclosure is being madepursuant to the Care Everywhere program and may not contain all information available regarding this patient. 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 Gender Identity Not on file Sexual Orientation Not on file Last Filed Vital Signs Vital Sign Reading Time Taken Comments Blood Pressure 124/72 06/20/2017 9:24 AM RETAIL GREETING CARD MERCHANDISER Pulse 88 06/20/2017 9:24 AM RETAIL GREETING CARD MERCHANDISER Temperature 37.1 C (98.8 F) 06/20/2017 9:24 AM RETAIL GREETING CARD MERCHANDISER Respiratory Rate 16 06/20/2017 9:24 AM RETAIL GREETING CARD MERCHANDISER Oxygen Saturation 98% 06/20/2017 9:24 AM RETAIL GREETING CARD MERCHANDISER Inhaled Oxygen Concentration - - Weight 99.8 kg (220 lb) 06/20/2017 9:24 AM RETAIL GREETING CARD MERCHANDISER Height 177.8 cm (5' 10 ) 06/20/2017 9:24 AM RETAIL GREETING CARD MERCHANDISER Body Mass Index 31.57 06/20/2017 9:24 AM RETAIL GREETING CARD MERCHANDISER Plan of Treatment Health Maintenance Due Date [...] complete this topic Insurance [employer] Care Teams Mechanical Shop Laborer Relationship Specialty Start Date End Date Didier Sandhu MD [address] [place] [address] PCP - General Family Medicine 04/19/16
== END 2024-09-06 15:55 | disposition home or self-care (01) ==
LOC: ANHED 15:50
PROVIDERS: Emergency Provider Physician Assistant; PCP Family Medicine
DX: S16.1XXA Strain of muscle, fascia and tendon at neck level, initial encounter (principal); V49.40XA Driver injured in collision with unspecified motor vehicles in traffic accident, initial encounter
CPT/HCPCS: 70450; 72125; 72128; 99284